=== PATIENT | male | born 2000 ===

== ENCOUNTER 2021-07-30 17:20 | Emergency (ER) | payer SELFPAY ==
[2021-07-30] MEDS ORDERED: Lidocaine 1% 10 ML MDV INJECT ONE (18:59)
== END 2021-07-30 20:10 | disposition home or self-care (01) ==
LOC: JD.ED 17:20
DX: S01.312A Laceration without foreign body of left ear, initial encounter (principal); W26.8XXA Contact with other sharp object(s), not elsewhere classified, initial encounter
CPT/HCPCS: 12011; 99283